=== PATIENT | female | born 1995 | race Caucasian/White ===

== ENCOUNTER 2019-03-12 12:23 | Emergency (ER) | payer BC ==
[~2019-03-12] VITALS: Ht 157.5 cm; Wt 63.5 kg
[2019-03-12 12:23] VITALS: BP_SYST 102
--- NOTE | 2019-03-12 12:23 | NUR ---
BROUGHT BACK TO BED #6 AND TRIAGED.REPORT GIVEN TO ROXIE
--- NOTE | 2019-03-12 12:51 | NUR ---
ER Dr. MOODY at bedside examining patient.
--- NOTE | 2019-03-12 12:58 | NUR ---
PATIENT CAME IN COMPLAINING OF BLOOD IN STOOL FOR 1 WEEK. PATIENT STATES SHE HAS BLACK STOOLS. PATIENT DID HER OWN HEMAOCCULT AND WAS POSITIVE. PATIENT STATES SHE HAS OFF AND ON DIARRHEA. PATIENT ALERT AND ORIENTED X4. PATIENT NOT COMPLAINING OF NAUSEA OR VOMITING.
[2019-03-12 13:14] LABS: BASOPHILS % (AUTO) 0.7 % (0.0-2.0); EOSINOPHILS # (AUTO) 0.2 K/uL (0.0-0.4); EOSINOPHILS % (AUTO) 4.2 % (0.0-4.0); HEMATOCRIT 38.6 % (36-48); HEMOGLOBIN 13.1 g/dL (12.0-16.0); LYMPHOCYTES # (AUTO) 1.4 K/uL (1.0-5.5); LYMPHOCYTES % (AUTO) 28.7 % (20.5-51.5); MEAN CORPUSCULAR HEMOGLOBIN 30 pg (27-31); MEAN CORPUSCULAR HGB CONC 34 % (32-36); MEAN CORPUSCULAR VOLUME 90 fL (79.0-98.0); MONOCYTES # (AUTO) 0.4 K/uL (0.0-1.0); MONOCYTES % (AUTO) 7.7 % (1.7-9.3); NEUTROPHILS % (AUTO) 58.7 % (40.0-70.0); PLATELET COUNT (AUTO) 368 K/uL (130-430); RED CELL DISTRIBUTION WIDTH 13.1 % (9.0-15.0)
[2019-03-12 13:25] LABS: BILIRUBIN,URINE NEGATIVE (NEGATIVE); CLARITY/URINE CLEAR (CLEAR); COLOR,URINE YELLOW (YELLOW); GLUCOSE,URINE NEGATIVE (NEGATIVE); KETONES,URINE NEGATIVE (NEGATIVE); LEUKOCYTE ESTERASE ,URINE NEGATIVE (NEGATIVE); NITRITE, URINE NEGATIVE (NEGATIVE); PH,URINE 5.5 (5.0-8.0); PROTEIN URINE NEGATIVE (NEGATIVE); UROBILINOGEN,URINE 0.2 (0.2-1.0)
[2019-03-12 13:27] LABS: BLOOD, URINE TRACE (NEGATIVE)
[2019-03-12 13:28] LABS: CREATININE 0.74 mg/dL (0.55-1.30); POTASSIUM 3.9 mmol/L (3.5-5.1)
[2019-03-12 13:34] LABS: ALBUMIN 3.7 g/dL (3.4-4.8); TOTAL BILIRUBIN 0.7 mg/dL (0.0-1.0)
[2019-03-12 13:47] LABS: BACTERIA,URINE RARE /HPF (None Seen); MUCUS,URINE 1+ /LPF (None Seen); RBC,URINE 0-3 /HPF (0-3); WBC,URINE 0-3 /HPF (0-3)
--- NOTE | 2019-03-12 13:55 | NUR ---
Rectal exam performed by dr steven with me at bedside during procedure. Patient tolerated well.
[2019-03-12 14:56] VITALS: BP_SYST 102
--- NOTE | 2019-03-12 14:56 | NUR ---
Patient given written and verbal discharge instructions and verbalizes understanding. ER MD discussed with patient the results and treatment provided. Patient in stable condition. ID arm band removed. Rx of ZOFRAN given. Patient educated on pain management and to follow up with PMD. Pain Scale 0/10. Opportunity for questions provided and answered. Medication side effect fact sheet provided.
== END 2019-03-12 14:56 | disposition home or self-care (01) ==
LOC: SED 12:23
DX: K62.5 Hemorrhage of anus and rectum (principal); R19.7 Diarrhea, unspecified; R11.10 Vomiting, unspecified; Z88.1 Allergy status to other antibiotic agents
CPT/HCPCS: 36415; 80053; 81000-TC; 81025; 83690-TC; 85025; 99283